=== PATIENT | male | born 1960 | race Caucasian/White ===

== ENCOUNTER 2018-02-14 18:04 | Inpatient (IN) | payer SELFPAY ==
[~2018-02-14] VITALS: Ht 180.3 cm; Wt 103.0 kg
--- NOTE | 2018-02-14 18:20 | NUR ---
PRESENTS TO ER C/O R CHEEK ABSCESS, DIFFICULTY OPENING THE MOUTH. ALREADY SEEN DENTIST AND WAS SENT TO ER. RIGHT CHEEK IS SWOLLEN, RED AND BLACK. WARM TO TOUCH. BREATHING EVEN AND UNLABORED. NO SOB, NAD, VITALS STABLE. SAFETY AND COMFORT MEASURES IN PLACE. AWAITING MD ORDERS.
[2018-02-14 18:59] LABS: BASOPHILS % (AUTO) 0.3 % (0.0-2.0); HEMATOCRIT 45 % (39-51); HEMOGLOBIN 15.3 g/dL (13.5-17.5); LYMPHOCYTES # (AUTO) 2.8 /CMM (0.8-4.8); LYMPHOCYTES % (AUTO) 27.1 % (20.0-44.0); MEAN CORPUSCULAR HEMOGLOBIN 29 PG (26.0-33.0); MEAN CORPUSCULAR HGB CONC 34 g/dl (31.0-36.0); MEAN CORPUSCULAR VOLUME 86 fL (80-96); MONOCYTES # (AUTO) 0.9 /CMM (0.1-1.30); MONOCYTES % (AUTO) 8.9 % (2.0-12.0); NEUTROPHILS # (AUTO) 6.4 /CMM (1.8-8.9); NEUTROPHILS % (AUTO) 61.7 % (43.0-81.0); PLATELET COUNT (AUTO) 329 /CMM (150-450); RDW COEFFICIENT OF VARIATION 13.8 (11.5-15.0); RED BLOOD CELL COUNT(AUTO) 5.28 MIL/uL (4.5-6.0); WHITE BLOOD COUNT (AUTO) 10.3 K/uL (4.3-11.0)
[2018-02-14] MEDS ORDERED: IBUP-1958 PO (18:59)
[2018-02-14] MEDS ORDERED: CEPH500C2 PO (18:59)
[2018-02-14] MEDS ORDERED: CEFTRIAXONE 1GM BAG (ER ONLY) 50 ML IV ONE (19:00)
[2018-02-14] MEDS ORDERED: ONDANSETRON HCL/PF 4 MG/2 ML VIAL IV ONE (19:00)
[2018-02-14] MEDS ORDERED: MORPHINE SULFATE INJ 2 MG/ML DISP.SYRIN IV ONE (19:00)
[2018-02-14] MEDS ORDERED: PIPERACILLIN /TAZOBACTAM 3.375 G in IV D5W 50 ML IV ONE (19:00)
[2018-02-14] MEDS ORDERED: VANCOMYCIN 1 GM in IV D5W 250 ML IV ONE (19:00)
[2018-02-14] MEDS ORDERED: ONDANSETRON HCL/PF 4 MG/2 ML VIAL ONE (19:04)
[2018-02-14] MEDS ORDERED: MORPHINE SULFATE INJ 4 MG/ML DISP.SYRIN ONE (19:04)
--- NOTE | 2018-02-14 19:05 | NUR ---
new iv started on left hand, 20g. blood drawn and sent to lab.
[2018-02-14 19:09] LABS: CALCIUM, SERUM 9.2 mg/dL (8.5-10.1); CREATININE 0.7 mg/dL (0.6-1.3); POTASSIUM 3.7 mmol/L (3.5-5.1)
[2018-02-14 19:13] LABS: INR 1.05 (0.85-1.15)
[2018-02-14 19:15] LABS: BILIRUBIN,DIRECT 0.1 mg/dL (0.0-0.2); BILIRUBIN,TOTAL 0.5 mg/dL (0.2-1.0); TOTAL PROTEIN, SERUM 7.6 g/dL (6.4-8.2)
[2018-02-14] MEDS ORDERED: IV NS 0.9% 250 ML IV ONE (19:18)
[2018-02-14] MEDS ORDERED: IOHEXOL-300 100 ML VIAL IV ONE (19:18)
[2018-02-14] MEDS ORDERED: CT SWABBABLE VALVE TRANS SET 1 EA INFUS.SET MC ONE (19:18)
--- NOTE | 2018-02-14 19:23 | NUR ---
PT BROUGHT TO CT BY RADIOLOGIST
--- NOTE | 2018-02-14 19:24 | NUR ---
REPORT GIVEN TO KATHARINE SHETTY FOR LUCIAN.
--- NOTE | 2018-02-14 19:24 | NUR ---
CALLED RN SUP FOR M/S BED.
--- NOTE | 2018-02-14 19:27 | NUR ---
Hortencia sellers in [facility] - 02/14/18 at 1927 by CONSTANZA CALLED NURSING SUP, REQUESTED MED SURG BED FOR THIS PATIENT.
--- NOTE | 2018-02-14 19:34 | NUR ---
PT RETURNED FROM CT
[2018-02-14] MEDS ORDERED: CEFTRIAXONE 2 G VIAL ONE (19:41)
--- NOTE | 2018-02-14 19:44 | NUR ---
ADMIT TO ROOM 207-1
--- NOTE | 2018-02-14 21:05 | NUR ---
GAVE REPORT TO AVI SHETTY FOR LUCIAN
[2018-02-14 21:28] VITALS: BP 154/82
[2018-02-14] MEDS ORDERED: Z GUARD REMEDY 2 OZ OINT TP PRN (22:00)
[2018-02-14] MEDS ORDERED: MAGNESIUM HYDROXIDE 30 ML UDC PO PRN (22:00)
[2018-02-14] MEDS ORDERED: ACETAMINOPHEN 325 MG TABLET PO PRN (22:00)
[2018-02-14] MEDS ORDERED: ONDANSETRON HCL/PF 4 MG/2 ML VIAL IVP PRN (22:00)
[2018-02-14] MEDS ORDERED: MAG HYDROX/AL HYDROX/SIMETH 30 ML UDC PO PRN (22:00)
[2018-02-14] MEDS ORDERED: IBUPROFEN 800 MG TABLET PO PRN (22:30)
--- NOTE | 2018-02-14 22:46 | NUR ---
MS RN NOTES RECEIVE PT FROM E.R VIA W/C PT ADMIT TO M/S, PT A/O X4, TOLERATING ROOM AIR 98%. NO S/S OF DISTRESS. NO COMPLAIN OF PAIN AT THIS TIME. HEAD TO TOE ASSESSMENT IS DONE SKIN IS INTACT. KEPT CLEAN AND DRY AND COMFOTABLE, RESPIRATIONS EVEN AND UNLABORED. SAFETY MEASURES IN PLACE. WILL CONTINUE TO MONITOR.
[2018-02-14] MEDS: IV NS 0.9% 1,000 ML IV PRN (22:56)
[2018-02-14] MEDS: CEPHALEXIN MONOHYDRATE 500 MG CAPSULE PO SCH (23:19)
[2018-02-15] MEDS ORDERED: NICOTINE PATCH (7MG) 7 MG PATCH.TD24 TD PRN (02:00)
[2018-02-15] MEDS: CEPHALEXIN MONOHYDRATE 500 MG CAPSULE PO SCH (05:27)
[2018-02-15] MEDS: HYDROCODONE/APAP 5/325MG 1 EACH TABLET PO PRN ×3 (05:35→21:56)
[2018-02-15 06:22] LABS: BASOPHILS % (AUTO) 0.4 % (0.0-2.0); EOSINOPHILS % (AUTO) 4.7 % (0.0-6.0); HEMATOCRIT 44 % (39-51); HEMOGLOBIN 14.3 g/dL (13.5-17.5); LYMPHOCYTES # (AUTO) 2.8 /CMM (0.8-4.8); LYMPHOCYTES % (AUTO) 27.7 % (20.0-44.0); MEAN CORPUSCULAR HEMOGLOBIN 29 PG (26.0-33.0); MEAN CORPUSCULAR HGB CONC 32 g/dl (31.0-36.0); MEAN CORPUSCULAR VOLUME 89 fL (80-96); MONOCYTES # (AUTO) 0.8 /CMM (0.1-1.30); MONOCYTES % (AUTO) 8.1 % (2.0-12.0); NEUTROPHILS % (AUTO) 59.1 % (43.0-81.0); PLATELET COUNT (AUTO) 316 /CMM (150-450); RDW COEFFICIENT OF VARIATION 14.8 (11.5-15.0); RED BLOOD CELL COUNT(AUTO) 4.94 MIL/uL (4.5-6.0); WHITE BLOOD COUNT (AUTO) 10.2 K/uL (4.3-11.0)
[2018-02-15 06:43] LABS: CALCIUM, SERUM 8.7 mg/dL (8.5-10.1); CREATININE 0.7 mg/dL (0.6-1.3); MAGNESIUM 1.8 mg/dL (1.8-2.4); PHOSPHORUS 4.3 mg/dL (2.5-4.9); POTASSIUM 4.2 mmol/L (3.5-5.1)
--- NOTE | 2018-02-15 06:43 | NUR ---
MS RN CLOSING NOTES ASLEEP AND EASILY AWAKEN, STABLE, TOLERATING ROOM AIR 99%. NOT IN DISTRESS. RESPIRATION EVEN AND UNLABORED. KEPT CLEAN AND DRY AND COMFORTABLE, ALL NURSING CARE RENDERED. NEEDS ATTENDED AND ANTICIPATED. GOOD SKIN CARE PROVIDED. ON LOW BED AT ALL TIMES TO ENSURE SAFETY. SAFE HAZARD FREE ENVIRONMENT PROVIDED. CALL LIGHT WITHIN EASY TO REACH. WILL ENDORSE NEXT SHIFT CONTINUITY OF CARE.
[2018-02-15 06:51] LABS: THYROID STIMULATING HORMONE 2.763 uIU/mL (0.358-3.74)
--- NOTE | 2018-02-15 07:31 | NUR ---
MS RN OPENING NOTES RECEIVED PATIENT IN STABLE CONDITION. IN NO APPARENT DISTRESS. BEDSIDE RAILS ARE UPX2. BED IS LOCKED AND LOWERED. CALL LIGHT IS WITHIN REACH. IV LINE IS INTACT AND PATENT. WILL CONTINUE TO MONITOR PATIENT.
[2018-02-15 08:00] VITALS: BP 144/86
[2018-02-15] MEDS: PANTOPRAZOLE 40 MG TABLET.DR PO SCH (08:51)
[2018-02-15] MEDS: HYDROCODONE/APAP 10/325MG 1 EA TABLET PO PRN ×3 (08:52→18:56)
[2018-02-15] MEDS: DOCUSATE SODIUM 100 MG CAPSULE PO SCH ×2 (08:54→17:00)
[2018-02-15] MEDS ORDERED: VANCOMYCIN 1 GM in IV NS 0.9% 250 ML IV SCH (11:30)
[2018-02-15] MEDS ORDERED: FEE PK DOSING 1 MIN EA MC ONE (11:45)
[2018-02-15] MEDS ORDERED: PIPERACILLIN /TAZOBACTAM 4.5 G in IV NS 0.9% 50 ML IV SCH (13:00)
[2018-02-15] MEDS: IV NS 0.9% 1,000 ML IV PRN (13:07)
--- NOTE | 2018-02-15 13:10 | NUR ---
CALLED PHARMACY TO PROVIDE ZOSYN ANTIBIOTIC AND VANCOMYCIN. PHARMACY WILL PROVIDE.
[2018-02-15] MEDS: PIPERACILLIN /TAZOBACTAM 3.375 G in IV D5W 50 ML IV SCH ×3 (13:38→23:44)
[2018-02-15] MEDS: VANCOMYCIN 1.25 GM in IV D5W 500 ML IV SCH ×2 (14:24→19:50)
[2018-02-15 16:00] VITALS: BP 156/94
--- NOTE | 2018-02-15 19:20 | NUR ---
MS RN OPENING NOTE Patient was seen sitting up with feet dangling over bedside, AAOx4, breathing comfortably on RA with no SOB, and no signs of acute distress. NS at 75ml/hr is running through the left hand with no signs of leaking or infiltration. Mass/abscess on right cheek is noted; per shift report, there are no orders for wound care; it is currently left open to air. The mass is edematous and red-purple in color with minimal serosanguineous drainage. Bed is low/locked, two side rails up, and call grigsby within reach. is at bedside. Patient has no immediate needs/concerns at this time. Will continue to monitor.
[2018-02-15 19:56] VITALS: BP 164/99
[2018-02-15 20:00] VITALS: BP 164/99
--- NOTE | 2018-02-15 21:56 | NUR ---
MS RN NOTE - [place] Patient requested pain medication for right sided cheek/face pain at 12/09 (patient has mass or possible abscess on right cheek). PO [place] 5/325mg was administered per prn orders. Will continue to monitor.
[2018-02-16] MEDS: HYDROCODONE/APAP 10/325MG 1 EA TABLET PO PRN ×3 (01:55→18:57)
--- NOTE | 2018-02-16 01:55 | NUR ---
MS RN NOTE - [place] Patient reported 8/10 right sided cheek/face pain and requested pain medication. Patient states he's had difficulty sleeping d/t pain. PO [place] 10/325mg was administered per orders for pain relief. Will continue to monitor.
[2018-02-16] MEDS: VANCOMYCIN 1.25 GM in IV D5W 500 ML IV SCH ×3 (03:32→20:36)
--- NOTE | 2018-02-16 06:02 | NUR ---
MS RN NOTE - [place] Patient reported 8-9/10 pain on right side of his face, radiating into his jaw and ear. PO [place] 10/325mg administered per prn orders. Patient advised to only take with very small sip of water given NPO status after midnight. No IV pain medications ordered at this time.
[2018-02-16] MEDS: PIPERACILLIN /TAZOBACTAM 3.375 G in IV D5W 50 ML IV SCH ×3 (06:49→18:00)
[2018-02-16 07:18] LABS: CALCIUM, SERUM 8.9 mg/dL (8.5-10.1); CREATININE 0.7 mg/dL (0.6-1.3); POTASSIUM 4.1 mmol/L (3.5-5.1)
--- NOTE | 2018-02-16 07:44 | NUR ---
MS RN CLOSING NOTE Patient is AAOx4, breathing comfortably on RA with no SOB, and no signs of acute distress. Patient slept intermittently overnight and has remained free of complications. Mass/abscess on right cheek remains red, edematous, painful, and continues to drain serosanguineous fluid. NS at 75ml/hr is running through the left hand. Bed is low/locked, two side rails up, and call grigsby within reach. Patient care endorsed to day shift nurse.
[2018-02-16 07:53] LABS: BASOPHILS % (AUTO) 0.1 % (0.0-2.0); EOSINOPHILS % (AUTO) 5.7 % (0.0-6.0); HEMATOCRIT 41 % (39-51); HEMOGLOBIN 13.6 g/dL (13.5-17.5); LYMPHOCYTES # (AUTO) 2.2 /CMM (0.8-4.8); LYMPHOCYTES % (AUTO) 22.3 % (20.0-44.0); MEAN CORPUSCULAR HEMOGLOBIN 29 PG (26.0-33.0); MEAN CORPUSCULAR HGB CONC 33 g/dl (31.0-36.0); MEAN CORPUSCULAR VOLUME 87 fL (80-96); MONOCYTES # (AUTO) 0.8 /CMM (0.1-1.30); MONOCYTES % (AUTO) 8.7 % (2.0-12.0); NEUTROPHILS # (AUTO) 6.2 /CMM (1.8-8.9); NEUTROPHILS % (AUTO) 63.2 % (43.0-81.0); PLATELET COUNT (AUTO) 262 /CMM (150-450); RDW COEFFICIENT OF VARIATION 13.5 (11.5-15.0); WHITE BLOOD COUNT (AUTO) 9.8 K/uL (4.3-11.0)
[2018-02-16 08:00] VITALS: BP 158/100
[2018-02-16] MEDS: DOCUSATE SODIUM 100 MG CAPSULE PO SCH ×2 (08:33→17:00)
[2018-02-16] MEDS: IBUPROFEN 400 MG TABLET PO PRN ×2 (08:33→18:56)
[2018-02-16] MEDS: PANTOPRAZOLE 40 MG TABLET.DR PO SCH (08:34)
[2018-02-16] MEDS: HYDROCODONE/APAP 5/325MG 1 EACH TABLET PO PRN (12:06)
[2018-02-16 16:00] VITALS: BP 166/90
[2018-02-16] MEDS ORDERED: SUCCINYLCHOLINE CHLORIDE 20 MG/ML VIAL ONE (16:40)
[2018-02-16] MEDS ORDERED: CELLULOSE,OXIDIZED 1 EA PACK MC ONE (17:18)
[2018-02-16] MEDS ORDERED: CELLULOSE,OXIDIZED 1 EACH EACH MC ONE (17:25)
[2018-02-16] MEDS ORDERED: LABETALOL HCL IV 100MG VIAL ONE (17:56)
--- NOTE | 2018-02-16 19:00 | NUR ---
MSRN CLOSING NOTES. PT RETURNED FROM PROCEDURE, ORDERS PLACED, FAMILY CONTACTED, PT VITALS CHARTED. PT WITH 9/10 PAIN, PRN ADMINISTERED. NIGHT NURSE TO ORDER LOZENGES IF NEEDED. PT DRESSING INTACT. ALL DAY NURSE DUTIES ATTENDED TO AND PT IS WITHOUT CONCERN OR COMPLAINT.ENDORSED TO NIGHT NURSE FOR LUCIAN.
[2018-02-16 19:04] VITALS: BP 179/100
--- NOTE | 2018-02-16 19:30 | NUR ---
MS2/RN RECEIVE PATIENT PATIENT IN BED AWAKE, ALERT, ORIENTED, COMFORTABLE, S/P I&D OF THE RIGHT CHEEK ABSCESS, WITH MILD TOLERABLE PAIN AT THIS TIME, DRESSING TO RIGHT CHEEK IS INTACT. WILL MONITOR.
[2018-02-16] MEDS: IV NS 0.9% 1,000 ML IV PRN (19:52)
[2018-02-16 20:45] VITALS: BP 165/89
[2018-02-17] MEDS: PIPERACILLIN /TAZOBACTAM 3.375 G in IV D5W 50 ML IV SCH ×5 (00:04→23:38)
[2018-02-17] MEDS: HYDROCODONE/APAP 10/325MG 1 EA TABLET PO PRN ×3 (02:24→13:53)
[2018-02-17] MEDS: VANCOMYCIN 1.25 GM in IV D5W 500 ML IV SCH ×3 (03:53→19:56)
[2018-02-17] MEDS: IBUPROFEN 400 MG TABLET PO PRN ×3 (06:08→23:35)
--- NOTE | 2018-02-17 07:20 | NUR ---
MS2/RN PATIENT AWAKE, COMFORTABLE, NO DISTRESS NOTED, ALL NEEDS ATTENDED AT THIS TIME. ENDORSED TO NEXT RN FOR CONTINUITY OF CARE.
--- NOTE | 2018-02-17 07:45 | NUR ---
MS RN NOTES PATIENT RECEIVED RESTING INSIDE ROOM. AWAKE, ALERT AND ORIENTED X 4. VERBALLY RESPONSIVE AND RESPONDS TO VERBAL AND TACTILE STIMULI. BREATHING EVEN AND UNLABORED. NO SOB OR ACUTE DISTRESS NOTED. PATIENT CALM AND RELAXED. DENIES ANY PAIN OR DISCOMFORT. IV INTACT AND PATENT. DRESSING IN PLACE ON RIGHT CHEEK, NO ACTIVE BLEEDING NOTED. WILL CONTINUE TO MONITOR. BED LOCKED AND IN LOW POSITION. BILATERAL UPPER SIDE RAILS UP AND LOCKED. CALL LIGHT WITHIN EASY REACH
[2018-02-17 07:56] LABS: BASOPHILS % (AUTO) 0.1 % (0.0-2.0); EOSINOPHILS % (AUTO) 0.3 % (0.0-6.0); HEMATOCRIT 40 % (39-51); HEMOGLOBIN 13.5 g/dL (13.5-17.5); LYMPHOCYTES # (AUTO) 1.3 /CMM (0.8-4.8); LYMPHOCYTES % (AUTO) 13.7 % (20.0-44.0); MEAN CORPUSCULAR HEMOGLOBIN 29 PG (26.0-33.0); MEAN CORPUSCULAR HGB CONC 34 g/dl (31.0-36.0); MEAN CORPUSCULAR VOLUME 87 fL (80-96); MONOCYTES # (AUTO) 0.6 /CMM (0.1-1.30); MONOCYTES % (AUTO) 5.9 % (2.0-12.0); NEUTROPHILS # (AUTO) 7.7 /CMM (1.8-8.9); PLATELET COUNT (AUTO) 282 /CMM (150-450); RDW COEFFICIENT OF VARIATION 13.7 (11.5-15.0); RED BLOOD CELL COUNT(AUTO) 4.63 MIL/uL (4.5-6.0); WHITE BLOOD COUNT (AUTO) 9.6 K/uL (4.3-11.0)
[2018-02-17 08:00] VITALS: BP 169/90
[2018-02-17 08:10] LABS: CALCIUM, SERUM 8.9 mg/dL (8.5-10.1); CREATININE 0.7 mg/dL (0.6-1.3); MAGNESIUM 1.9 mg/dL (1.8-2.4); PHOSPHORUS 3.2 mg/dL (2.5-4.9); POTASSIUM 4.2 mmol/L (3.5-5.1)
[2018-02-17] MEDS: DOCUSATE SODIUM 100 MG CAPSULE PO SCH ×2 (08:54→16:14)
[2018-02-17] MEDS: PANTOPRAZOLE 40 MG TABLET.DR PO SCH (08:54)
[2018-02-17 16:00] VITALS: BP 168/93
--- NOTE | 2018-02-17 19:30 | NUR ---
MS RN NOTES RECEIVED ON BED A/O X4,CONVERSANT.IVF NS AT 75MLHR RATE IN PROGRESS,SITE PATENT ON RFA.NOTED DRESSING ON RIGHT CHEEK SOAKING/ DRIPPING.S/P INCISION AND DRAINAGE RIGHT CHEEK CELLULITIS.PAIN TOLERABLE AT THE MOMENT.CALL LIGHT IN REACH,NEEDS ANTICIPATED.
--- NOTE | 2018-02-17 19:32 | NUR ---
MS RN NOTES PATIENT RECEIVED RESTING INSIDE ROOM. AWAKE, ALERT AND ORIENTED. VERBALLY RESPONSIVE AND RESPONDS TO VERBAL AND TACTILE STIMULI. BREATHING EVEN AND UNLABORED. NO SOB OR ACUTE DISTRESS NOTED. PATIENT CALM AND RELAXED. NO CHANGES IN LOC NOTED. IV INTACT AND PATENT. DRESSING IN PLACE ON RIGHT CHEEK. ENDORSED TO INCOMING SHIFT FOR LUCIAN. BED LOCKED AND IN LOW POSITION. BILATERAL UPPER SIDE RAILS UP AND LOCKED. CALL LIGHT WITHIN EASY REACH
[2018-02-17 20:00] VITALS: BP 163/85
--- NOTE | 2018-02-17 20:00 | NUR ---
MS RN NOTES DUE IV ABX HUNG,INFUSING VIA IV PUMP.
--- NOTE | 2018-02-17 21:30 | NUR ---
MS RN NOTES DRESSING CHANGE DONE ON THE RIGHT CHEEK,PACKING IN PLACE.WILL CONTINUE TO MONITOR.
--- NOTE | 2018-02-17 23:35 | NUR ---
MS RN NOTES PAIN MANAGEMENT C/O RIGHT CHEEK PAIN 6/10 ON PAIN SCALE.MOTRIN 800MG PO GIVEN PER PATIENT REQUEST,INSTEAD OF NORCO 5/325 MG.
[2018-02-18] MEDS: HYDROCODONE/APAP 5/325MG 1 EACH TABLET PO PRN (03:51)
--- NOTE | 2018-02-18 03:51 | NUR ---
MS RN NOTES PAIN MANAGEMENT AWAKE,SITTING ON EDGE OF BED.C/O PAIN VIA RIGHT CHEEK 7/10 N PAIN SCALE.MEDICATED WITH NORCO 5/325MG,1 TAB PO ORDERED.
[2018-02-18] MEDS: VANCOMYCIN 1.25 GM in IV D5W 500 ML IV SCH ×3 (04:04→20:08)
[2018-02-18] MEDS: PIPERACILLIN /TAZOBACTAM 3.375 G in IV D5W 50 ML IV SCH ×4 (06:21→23:51)
[2018-02-18] MEDS: IBUPROFEN 400 MG TABLET PO PRN ×3 (06:28→22:25)
--- NOTE | 2018-02-18 06:28 | NUR ---
MS RN NOTES ON BED,C/O PAIN ON RIGHT CHEEK,MOTRIN 800MG PO GIVEN PER PATIENT REQUEST.IVF INFUSING.DRESSING TO RIGHT CHEEK IN PLACE.IN NO ACUTE DISTRESS.ENDORSED TO [place] SHETTY FOR LUCIAN.
[2018-02-18 07:32] LABS: CALCIUM, SERUM 8.7 mg/dL (8.5-10.1); CREATININE 0.7 mg/dL (0.6-1.3)
--- NOTE | 2018-02-18 07:49 | NUR ---
MS RN NOTES PATIENT RECEIVED RESTING INSIDE ROOM. AWAKE, ALERT AND ORIENTED X 4. VERBALLY RESPONSIVE AND RESPONDS TO VERBAL AND TACTILE STIMULI. BREATHING EVEN AND UNLABORED. NO SOB OR ACUTE DISTRESS. DENIES ANY PAIN OR DISCOMFORT. NO CHANGES IN LOC NOTED. DRESSING IN PLACE ON RIGHT CHEEK. NO ACTIVE BLEEDING AT THIS TIME. WILL CONTINUE TO MONITOR. BED LOCKED AND IN LOW POSITION. BILATERAL UPPER SIDE RAILS UP AND LOCKED. CALL LIGHT WITHIN EASY REACH.
[2018-02-18 08:00] VITALS: BP 147/65
[2018-02-18] MEDS: DOCUSATE SODIUM 100 MG CAPSULE PO SCH ×2 (08:26→17:47)
[2018-02-18] MEDS: PANTOPRAZOLE 40 MG TABLET.DR PO SCH (08:26)
[2018-02-18] MEDS: IV NS 0.9% 1,000 ML IV PRN (12:52)
[2018-02-18] MEDS: HYDROCODONE/APAP 10/325MG 1 EA TABLET PO PRN ×2 (14:18→18:52)
[2018-02-18 16:00] VITALS: BP 167/86
--- NOTE | 2018-02-18 19:00 | NUR ---
MS RN OPENING NOTES RECEIVED PATIENT IN STABLE CONDITION. IN NO APPARENT DISTRESS. BEDSIDE RAILS ARE UPX2. BED IS LOCKED AND LOWERED. CALL LIGHT IS WITHIN REACH. WILL CONTINUE TO MONITOR PATIENT.
--- NOTE | 2018-02-18 19:25 | NUR ---
MS RN NOTES PATIENT RESTING INSIDE ROOM. AWAKE, ALERT AND ORIENTED. VERBALLY RESPONSIVE AND RESPONDS TO VERBAL AND TACTILE STIMULI. BREATHING EVEN AND UNLABORED. NO SOB OR ACUTE DISTRESS NOTED. NO CHANGES IN LOC NOTED. IV INTACT AND PATENT. DRESSING INTACT ON RIGHT CHEEK. ENDORSED TO INCOMING SHIFT FOR LUCIAN. BED LOCKED AND IN LOW POSITION. BILATERAL UPPER SIDE RAILS UP AND LOCKED. CALL LIGHT WITHIN EASY REACH
[2018-02-18 20:00] VITALS: BP 149/71
[2018-02-19] MEDS: VANCOMYCIN 1.25 GM in IV D5W 500 ML IV SCH ×2 (03:00→13:15)
[2018-02-19] MEDS: HYDROCODONE/APAP 10/325MG 1 EA TABLET PO PRN ×2 (03:01→10:22)
[2018-02-19] MEDS ORDERED: IBUPROFEN 400 MG TABLET ONE (04:37)
[2018-02-19] MEDS: IBUPROFEN 400 MG TABLET PO PRN ×3 (05:03→19:43)
[2018-02-19] MEDS: PIPERACILLIN /TAZOBACTAM 3.375 G in IV D5W 50 ML IV SCH ×4 (05:03→23:16)
--- NOTE | 2018-02-19 06:00 | NUR ---
MS RN CLOSING NOTES ASLEEP AND EASILY AWAKEN, TOLERATING ROOM AIR 100%, STABLE AND NOT IN DISTRESS. RESPIRATION EVEN AND UNLABORED. NO COMPLAIN OF PAIN AT THIS TIME 0-10 KEPT CLEAN AND DRY AND COMFORTABLE, ALL NURSING CARE RENDERED. NEEDS ATTENDED AND ANTICIPATED. GOOD SKIN CARE PROVIDED. ON LOW BED AT ALL TIMES TO ENSURE SAFETY. SAFE HAZARD FREE ENVIRONMENT PROVIDED. CALL LIGHT WITHIN EASY TO REACH. WILL ENDORSE NEXT SHIFT CONTINUITY OF CARE
--- NOTE | 2018-02-19 07:13 | NUR ---
MS RN OPENING NOTES RECEIVED PATIENT ASLEEP IN BED, EASILY AROUSABLE. HOB ELEVATED. ON ROOM AIR, BREATHING EVEN AND UNLABORED. NO SOB OR ACUTE DISTRESS NOTED. IV ACCESS ON RFA INTACT AND PATENT, IVF OF NS @ 75ML/HR INFUSING, NO S/S OF INFILTRATION NOTED. DRESSING IN PLACE ON RIGHT CHEEK, NO ACTIVE BLEEDING NOTED. SAFETY MEASURES IN PLACE. BED LOCKED AND IN LOW POSITION WITH BILATERAL UPPER SIDE RAILS UP X2. CALL LIGHT WITHIN EASY REACH. WILL CONTINUE TO MONITOR PT ACCORDINGLY.
[2018-02-19 07:39] LABS: CREATININE 0.8 mg/dL (0.6-1.3)
[2018-02-19] MEDS: PANTOPRAZOLE 40 MG TABLET.DR PO SCH (07:47)
[2018-02-19 08:00] VITALS: BP 154/83
[2018-02-19] MEDS: METFORMIN 500 MG TABLET PO SCH ×2 (08:39→16:54)
[2018-02-19] MEDS: DOCUSATE SODIUM 100 MG CAPSULE PO SCH ×2 (08:44→16:55)
--- NOTE | 2018-02-19 10:23 | NUR ---
RN NOTES PAIN MANAGEMENT PATIENT C/O PAIN ON HIS RIGHT CHEEK WITH 8/10 PAIN SCALE. PRN NORCO 10/325MG 1 TAB PO GIVEN ORDERED. WILL CONTINUE TO MONITOR..
[2018-02-19] MEDS: HYDROCODONE/APAP 5/325MG 1 EACH TABLET PO PRN ×3 (14:47→23:33)
--- NOTE | 2018-02-19 14:52 | NUR ---
RN NOTES PAIN MANAGEMENT PATIENT C/O PAIN ON HIS RIGHT CHEEK WITH 5/10 PAIN SCALE. PRN NORCO 5/325MG 1 TAB PO GIVEN ORDERED. WILL CONTINUE TO MONITOR..
[2018-02-19 16:00] VITALS: BP 166/91
[2018-02-19] MEDS: IV NS 0.9% 1,000 ML IV PRN (16:51)
--- NOTE | 2018-02-19 18:50 | NUR ---
RN NOTES PAIN MANAGEMENT PATIENT C/O PAIN ON HIS RIGHT CHEEK WITH 6/10 PAIN SCALE. PRN NORCO 5/325MG 1 TAB PO GIVEN 1847. WILL CONTINUE TO MONITOR..
--- NOTE | 2018-02-19 18:51 | NUR ---
MS RN CLOSING NOTES PATIENT AWAKE AND RESTING IN BED AT THIS TIME. HOB ELEVATED. A.O X4, SAME ABLE TO MAKE NEEDS KNOWN. PT AMBULATORY AND COOPERATIVE WITH CARE. DRESSING ON RIGHT CHEEK IN PLACE WITH MINIMAL AMOUNT OF DRAINAGE NOTED. DRESSING CHANGED X2 DURING SHIFT. ON ROOM AIR, BREATHING EVEN AND UNLABORED. NO SOB OR ACUTE DISTRESS NOTED. IV ACCESS ON RFA INTACT AND PATENT, IVF OF NS @ 75ML/HR INFUSING WELL, NO S/S OF INFILTRATION NOTED. ALL NEEDS AND CARE ATTENDED WELL. ALL SAFETY MEASURES KEPT IN PLACE. BED LOCKED AND IN LOW POSITION WITH BILATERAL UPPER SIDE RAILS UP X2. CALL LIGHT WITHIN EASY REACH. WILL ENDORSE TO HIMS MANAGER NURSE FOR LUCIAN.
--- NOTE | 2018-02-19 19:30 | NUR ---
RN NOTES RECEIVED PT. AWAKE ON BED, A/OX4, DRESSING ON HIS FACE DRY AND INTACT, IV FLUID NS @ 75ML/HR, CALL LIGHT WITHIN REACH, BED IN LOCKED POSITION, SIDERAILSUPX2, CONTINUE TO MONITOR
--- NOTE | 2018-02-19 19:51 | NUR ---
RN NOTES COMPLAINED OF FACE PAIN AND ASKED FOR MOTRIN- MOTRIN 800MG PO GIVEN ORDERED, V/S STABLE
[2018-02-19 20:00] VITALS: BP 152/88
[2018-02-19] MEDS ORDERED: VANCOMYCIN 1 GM in IV D5W 250 ML IV SCH (20:00)
--- NOTE | 2018-02-19 23:38 | NUR ---
RN NOTES COMPLAINED OF RIGHT FACE PAIN- NOROC 5/325 MG PO GIVEN ORDERED, V/S STABLE
[2018-02-20] MEDS: IBUPROFEN 400 MG TABLET PO PRN ×2 (01:39→14:12)
--- NOTE | 2018-02-20 01:47 | NUR ---
RN NOES PT. ASKED FOR MOTRIN -MOTRIN 800MG PO GIVEN ORDERED
[2018-02-20] MEDS: IV NS 0.9% 1,000 ML IV PRN (04:07)
[2018-02-20] MEDS: HYDROCODONE/APAP 10/325MG 1 EA TABLET PO PRN ×2 (04:45→10:13)
--- NOTE | 2018-02-20 04:48 | NUR ---
RN NOTES COMPLAINED OF RIGHT FACE PAIN- NORCO 10/325 MG PO GIVEN ORDERED, V/ S STABLE
[2018-02-20] MEDS: PIPERACILLIN /TAZOBACTAM 3.375 G in IV D5W 50 ML IV SCH ×3 (05:40→17:07)
--- NOTE | 2018-02-20 06:34 | NUR ---
RN NOTES SLEEPING BUT AROUSABLE, IV FLUID RUNNING IV LINE PATENT NO REDNESS OR SWOLLEN, MORNING CARE RENDERED, SIDERAILSUPX2, PT. NEEDS ATTENDED
--- NOTE | 2018-02-20 07:10 | NUR ---
MS RN OPENING NOTES PATIENT RECEIVED AWAKE IN BED IN NO ACUTE SIGNS OF DISTRESS. HOB ELEVATED. A/O X4. ABLE TO MAKE NEEDS AND CONCERNS KNOWN, NO C/O PAIN OR DISCOMFORTS AT THIS TIME. DRESSING IN PLACE ON RIGHT CHEEK, NO ACTIVE BLEEDING NOTED. ON ROOM AIR, BREATHING EVEN AND UNLABORED. IV ACCESS ON RFA INTACT AND PATENT, IVF OF NS @ 75ML/HR INFUSING WELL, NO S/S OF INFILTRATION NOTED. SAFETY MEASURES IN PLACE. BED LOCKED AND IN LOW POSITION WITH BILATERAL UPPER SIDE RAILS UP. CALL LIGHT WITHIN EASY REACH. WILL CONTINUE TO MONITOR PT.
[2018-02-20 07:17] LABS: CALCIUM, SERUM 8.4 mg/dL (8.5-10.1); CREATININE 0.7 mg/dL (0.6-1.3); POTASSIUM 3.7 mmol/L (3.5-5.1)
[2018-02-20 08:00] VITALS: BP 164/87
[2018-02-20] MEDS: PANTOPRAZOLE 40 MG TABLET.DR PO SCH ×2 (08:18→09:05)
[2018-02-20] MEDS: DOCUSATE SODIUM 100 MG CAPSULE PO SCH ×2 (09:00→17:00)
[2018-02-20] MEDS: METFORMIN 500 MG TABLET PO SCH ×2 (09:05→17:06)
--- NOTE | 2018-02-20 14:15 | NUR ---
RN NOTES PAIN MANAGEMENT PATIENT'S RIGHT CHEEK REMAINS SWOLLEN WITH REDNESS AROUND WOUND. WOUND TREATMENT DONE ORDERED. PATIENT C/O ACHING AND THROBBING PAIN ON HIS RIGHT CHEEK WITH PAIN SCALE OF 6/10. PRN MOTRIN 800MG PO GIVEN AT 1412. WILL CONTINUE TO MONITOR.
[2018-02-20 16:00] VITALS: BP 165/74
[2018-02-20] MEDS: HYDROCODONE/APAP 5/325MG 1 EACH TABLET PO PRN (17:06)
--- NOTE | 2018-02-20 17:14 | NUR ---
RN NOTES PAIN MANAGEMENT PATIENT C/O ACHING AND THROBBING PAIN ON HIS RIGHT CHEEK WITH PAIN SCALE OF 5/10. PRN NORCO 5/325MG PO GIVEN AT 1706. WILL CONTINUE TO MONITOR
--- NOTE | 2018-02-20 18:57 | NUR ---
RN DISCHARGED NOTES PATIENT DISCHARGED HOME IN STABLE CONDITION. A/O X4. ABLE TO MAKE NEEDS KNOWN. ALL DUE MEDS GIVEN ORDERED. PT'S SHOWED AND THOUGHT HOW TO DO WOUND CARE TREATMENT ON PT'S RIGHT CHEEK WOUND AND ABLE TO UNDERSTAND AND DEMONSTRATE HOW TO DO IT. PHOTO OF WOUND TAKEN AND FILED ON CHART. V/S TAKEN AND RECORDED. BELONGINGS CHECKED, COUNTED AND SIGNED FORM. PRESCRIPTION HANDED TO PT. HEALTH TEACHINGS GIVEN TO PT AND AND BOTH VERBALIZED UNDERSTANDING. SMOKING CESSATION EDUCATION GIVEN TO PT. PT LEFT UNIT AMBULATORY AT 1855 ACCOMPANIED BY . MD AND NURSE WATER TREATMENT PLANT SUPERVISOR AWARE OF DISCHARGE.
== END 2018-02-20 18:55 | disposition home or self-care (01) | DRG 982 ==
LOC: ER 18:09 → MEDSG2 19:49
PROVIDERS: ADMIT Registered Nurse; ATTEND Registered Nurse
PROC: 0KD Muscles, Extraction (ICD-10-PCS; principal; 2018-02-18)
DX: C76.0 Malignant neoplasm of head, face and neck (principal); L03.211 Cellulitis of face; L02.01 Cutaneous abscess of face; K02.9 Dental caries, unspecified; L73.9 Follicular disorder, unspecified; E66.9 Obesity, unspecified; Z68.32 Body mass index [BMI] 32.0-32.9, adult; Z72.0 Tobacco use; E11.9 Type 2 diabetes mellitus without complications
CPT/HCPCS: 36415; 70491-TC; 80048-TC; 80061-TC; 80076-TC; 80202-TC; 80305; 83540-TC; 83605-TC; 83735-TC; 84100-TC; 84443-TC; 85025-TC; 85730-TC; 87040-TC; 87070-TC; 87075-TC; 87081-TC; 87186-TC; 87806; 88305-TC; 92611-TC; A4216; A4606; A6253; A6402; A6403; A6407; J0330; J0696; J2270; J2405; J2543; J3370; J3490; J7030; J7050; J7060; Q9967; Z7610

== ENCOUNTER 2019-03-18 00:13 | Inpatient (IN) | payer MEDICAID, OTHER ==
[~2019-03-18] VITALS: Ht 180.3 cm; Wt 69.4 kg
[~2019-03-18 00:13] MED LIST: IBUP-1958 PO
--- NOTE | 2019-03-18 00:15 | NUR ---
PT BIB EMS C/O L ABD G-TUBE DISLOGEMENT X20 MIN GLAZIER STAINED GLASS. PT NONVERBAL. FAMILY AND CAREGIVER AT BEDSIDE TO PROVIDE HISTORY. NAD NOTED. RESP EVEN AND UNLABORED. VSS. PT ON MONITOR IN BED 1. WILL CONTINUE TO MONITOR.
--- NOTE | 2019-03-18 00:59 | NUR ---
BLOOD DRAWN FROM PICC LINE AND GIVEN TO PHLEB
[2019-03-18] MEDS ORDERED: IV NS 0.9% 500 ML BAG IV ONE (01:00)
[2019-03-18 01:14] LABS: CALCIUM, SERUM 11.1 mg/dL (8.5-10.1); CREATININE 0.6 mg/dL (0.6-1.3); POTASSIUM 4.3 mmol/L (3.5-5.1)
[2019-03-18] MEDS ORDERED: SENN-168 GT (01:14)
[2019-03-18] MEDS ORDERED: GABA100C GT (01:14)
[2019-03-18] MEDS ORDERED: ATEN25TA GT (01:14)
[2019-03-18] MEDS ORDERED: POLY119P2 GT (01:14)
[2019-03-18] MEDS ORDERED: MORP30TA GT (01:14)
[2019-03-18] MEDS ORDERED: MORP30CA16 GT (01:14)
[2019-03-18 01:19] LABS: ALBUMIN 1.9 g/dL (3.4-5.0); BILIRUBIN,DIRECT 0.1 mg/dL (0.0-0.2); BILIRUBIN,TOTAL 0.1 mg/dL (0.2-1.0); TOTAL PROTEIN, SERUM 6.9 g/dL (6.4-8.2)
[2019-03-18 01:25] LABS: BASOPHILS # (AUTO) 0.1 /CMM (0.0-0.2); BASOPHILS % (AUTO) 0.3 % (0.0-2.0); EOSINOPHILS % (AUTO) 0.2 % (0.0-6.0); HEMATOCRIT 27 % (39-51); HEMOGLOBIN 8.8 g/dL (13.5-17.5); LYMPHOCYTES # (AUTO) 0.8 /CMM (0.8-4.8); LYMPHOCYTES % (AUTO) 3.9 % (20.0-44.0); MEAN CORPUSCULAR HGB CONC 33 g/dl (31.0-36.0); MEAN CORPUSCULAR VOLUME 87 fL (80-96); MONOCYTES # (AUTO) 1.2 /CMM (0.1-1.30); NEUTROPHILS # (AUTO) 17.9 /CMM (1.8-8.9); NEUTROPHILS % (AUTO) 89.6 % (43.0-81.0); PLATELET COUNT (AUTO) 340 /CMM (150-450); WHITE BLOOD COUNT (AUTO) 19.9 K/uL (4.3-11.0)
--- NOTE | 2019-03-18 01:41 | NUR ---
M/S ROOM 109
--- NOTE | 2019-03-18 01:48 | NUR ---
REPORT GIVEN TO DIOGENES AMARO FOR LUCIAN
[2019-03-18] MEDS ORDERED: MAG HYDROX/AL HYDROX/SIMETH 30 ML UDC PO PRN (02:00)
[2019-03-18] MEDS ORDERED: ACETAMINOPHEN 325 MG TABLET PO PRN (02:00)
[2019-03-18] MEDS ORDERED: ZOLPIDEM TARTRATE 5 MG TABLET PO PRN (02:00)
[2019-03-18] MEDS ORDERED: IV NS 0.9% 1,000 ML IV PRN (02:00)
[2019-03-18] MEDS ORDERED: HYDROCODONE/APAP 5/325MG 1 EACH TABLET PO PRN (02:00)
[2019-03-18] MEDS ORDERED: ONDANSETRON HCL/PF 4 MG/2 ML VIAL IVP PRN (02:00)
[2019-03-18] MEDS ORDERED: Z GUARD REMEDY 2 OZ OINT TP PRN (02:00)
[2019-03-18] MEDS ORDERED: DEXTROSE 50%-WATER 50 ML DISP.SYRIN IV PRN (02:00)
--- NOTE | 2019-03-18 03:30 | NUR ---
MS RN NOTE PATIENT RECEIVED FROM ER IN [facility] WITH FAMILY. PATIENT HAS MUCH DIFFICULTY SPEAKING DUE TO CANCER ON FACE ND NECK. PATIENT C/O OF PAIN IN HEAD AND NECK 03/11. PATIENT DENIES SOB/ CHEST PAIN. COPIOUS AMOUNTS OF ORAL SECRETIONS NOTED PATIENT ABLE TO COUGH AND CLEAR WELL. BODY CHECK DONE, WOUNDS NOTED ON SACRUM AND OLD GTUBE SITE. PATIENT AND FAMILY ORIENTED TO UNIT. CALL LIGHT INSTRUCTIONS GIVEN PATIENT VERBALIZES UNDERSTANDING. VI PICC PATENT AND INTACT. ABLE TO ASPIRATE BLOOD. SAFETY PRECAUTIONS IN PLACE, RN WILL CONTINUE TO MONITOR.
--- NOTE | 2019-03-18 03:39 | NUR ---
MS RN NOTE PATIENT FAMILY REQUEST THAT ALL DOCTOR VISITS BE DONE WITH OVER THE PHONE WELL IF NOT PHYSICALLY PRESENT. [phone]
[2019-03-18 04:00] VITALS: BP 153/79
[2019-03-18] MEDS ORDERED: VANCOMYCIN 1 GM in IV D5W 250ml IV SCH (04:00)
--- NOTE | 2019-03-18 04:00 | NUR ---
MS RN NOTE PATIENT HAS VASCULAR CANCEROUS WOUND ON ON NECK FAMILY REFUSES TO HAVE CURRENT DRESSINGS REMOVED FOR PATIENT SAFETY. NO PICTURE ABLE TO BE TAKEN HIDE AND SKIN PROCESSING WORKER AWARE.
[2019-03-18] MEDS ORDERED: VANCOMYCIN 1 GM VIAL ONE (04:32)
[2019-03-18] MEDS ORDERED: PIPERACILLIN /TAZOBACTAM 3.375 G VIAL IV ONE (04:33)
[2019-03-18] MEDS: BLOOD SUGAR DIAGNOSTIC 1 EACH STRIP IN SCH ×3 (06:15→17:26)
--- NOTE | 2019-03-18 06:15 | NUR ---
MS RN NOTE PATIENT REFUSES INSULIN AFTER 0600 BS CHECK WAS 177, PATIENT CURRENTLY NPO WITH NS MAINTENANCE FLUIDS. MD AND ELECTRICAL ASSEMBLY TECHNICIANDIOGENES BARCLAY
[2019-03-18] MEDS: MORPHINE SULFATE INJ 2 MG/ML DISP.SYRIN IM PRN ×2 (06:18→17:51)
[2019-03-18] MEDS: PIPERACILLIN /TAZOBACTAM 3.375 G in IV D5W 50 ML IV SCH ×3 (06:24→17:18)
[2019-03-18 06:52] LABS: BASOPHILS # (AUTO) 0.1 /CMM (0.0-0.2); BASOPHILS % (AUTO) 0.3 % (0.0-2.0); EOSINOPHILS % (AUTO) 0.4 % (0.0-6.0); HEMATOCRIT 27 % (39-51); HEMOGLOBIN 8.7 g/dL (13.5-17.5); LYMPHOCYTES # (AUTO) 0.8 /CMM (0.8-4.8); LYMPHOCYTES % (AUTO) 4.3 % (20.0-44.0); MEAN CORPUSCULAR HGB CONC 32 g/dl (31.0-36.0); MEAN CORPUSCULAR VOLUME 86 fL (80-96); MONOCYTES # (AUTO) 1.1 /CMM (0.1-1.30); MONOCYTES % (AUTO) 6.1 % (2.0-12.0); NEUTROPHILS # (AUTO) 16.3 /CMM (1.8-8.9); NEUTROPHILS % (AUTO) 88.9 % (43.0-81.0); PLATELET COUNT (AUTO) 335 /CMM (150-450); RED BLOOD CELL COUNT(AUTO) 3.14 MIL/uL (4.5-6.0); WHITE BLOOD COUNT (AUTO) 18.3 K/uL (4.3-11.0)
[2019-03-18 07:07] LABS: CALCIUM, SERUM 11.3 mg/dL (8.5-10.1); CREATININE 0.5 mg/dL (0.6-1.3); PHOSPHORUS 2.5 mg/dL (2.5-4.9); POTASSIUM 4.2 mmol/L (3.5-5.1)
--- NOTE | 2019-03-18 07:18 | NUR ---
MS RN OPENING NOTE RECEIVED REPORT FROM [facility] SHIFT NURSE. PT AWAKE IN BED, AWAKE, ALERT AND ORIENTED X 1, ON ROOM AIR, SATURATING WELL, NO SIGNS OF RESPIRATORY DISTRESS NOTED. INTRODUCED SELF TO PT AND DISCUSSED PLAN OF CARE. TRACH DRESSING INTACT. DRESSING ON LEFT CAROTID SITE IS NOT INTACT, PER [facility] SHIFT NURSE PT'S DOES NOT WANT STAFF TO TOUCH THE DRESSING AT ALL. LEFT UPPER ARM PICC INFUSING NS AT 75ML/HR. BED IN LOW POSITION, LOCKED, CALL LIGHT WITHIN REACH.
[2019-03-18] MEDS ORDERED: FEE PK DOSING 1 MIN EA MC ONE (07:21)
--- NOTE | 2019-03-18 07:45 | NUR ---
CHITO WOUND CARE NURSE BY PT'S BEDSIDE. ASSESSED SACRAL WOUND, PLACED WOUND CARE ORDERS.
[2019-03-18 08:00] VITALS: BP 161/95
--- NOTE | 2019-03-18 08:17 | NUR ---
WOUND CARE CONSULT: PT PRESENTS WITH LARGE DRESSING TO RT SIDE OF FACE AND NECK WITH CLAIRE/PINK DRAINAGE AND SOME ODOR NOTED, PRESENT ON ADMISSION. PT AND REFUSED TO HAVE DRESSING REMOVED DUE TO RISK OF BLEEDING PER NURSING STAFF. ABD PAD APPLIED FOR REINFORCEMENT OF DRESSING. DEFER TO MD FOR POSSIBLE SURGICAL CONSULT. PT ALSO NOTED TO HAVE RASH TO PERINEUM AND BUTTOCKS AND STAGE 2 ULCER TO SACRUM, PRESENT ON ADMISSION. RECOMMENDATIONS MADE FOR SKIN PROTECTION AND SACRAL WOUND CARE. DISCUSSED WITH NURSING STAFF. PT ON ARLEY ISOFLEX LOW AIRLOSS BED. WILL SEE PRN. IN AGREEMENT WITH PLAN OF CARE. Addendum: 03/18/19 at 0838 by CHITO BARDALES WNDNU ADDITIONAL: G TUBE IS OUT, PRESENT ON ADMISSION. DEFER TO MD.
--- NOTE | 2019-03-18 08:46 | NUR ---
SPOKE WITH PT'S TO UPDATE HER ON PATIENT'S CONDITION. PER - PT IS BEING SEEN BY [facility] FOR HIS WOUND ON RIGHT SIDE OF NECK. GAVE PERMISSION TO CHANGE DRESSING ON THE NECK AND SECURE IT
--- NOTE | 2019-03-18 08:52 | NUR ---
PT BY BEDSIDE
--- NOTE | 2019-03-18 09:02 | NUR ---
PHOTOS TAKEN OF NECK RIGHT SIDE- PLACED INTO CHART. MEASUREMENTS 7 X 10 CM. PER WOUND CARE NURSE ORDERS APPLIED XEROFOAM, COVERED WITH ABDOMINAL PAD, SECURED WITH KERLIX.
--- NOTE | 2019-03-18 09:56 | NUR ---
WOUND CARE: SPOKE WITH PATIENT'S VIKSA AND SHE REQUESTED WOUND DRESSING CHANGE FOR FACIAL WOUND. WOUND ASSESSED, PHOTOGRAPHED AND WOUND CARE RECOMMENDATIONS MADE. DISCUSSED WITH NURSING STAFF AND DR US. SURGICAL CONSULT REQUESTED AND DR LATIA MARIEE NOTIFIED. WILL SEE PRN. Carolina Gant IN AGREEMENT WITH PLAN OF CARE. Addendum: 03/18/19 at 1001 by CHITO BARDALES WNDNU Amended: Links added.
--- NOTE | 2019-03-18 11:56 | NUR ---
PT'S IS AT BEDSIDE REQUESTING TO SPEAK WITH DR. US. CALLED [facility]- SPOKE WITH LIZ TO GIVE A MESSAGE TO DR. US THAT PT'S FAMILY WOULD LIKE TO SPEAK WITH HIM.
--- NOTE | 2019-03-18 12:07 | NUR ---
DR. US BY BEDSIDE, SPEAKING WITH PT'S
[2019-03-18] MEDS: INSULIN REGULAR, HUMAN 100 UNIT/ML 3 ML VIAL SQ PRN ×3 (12:53→17:33)
--- NOTE | 2019-03-18 12:53 | NUR ---
HELD 2 UNITS OF INSULIN DUE TO PT NPO STATUS
[2019-03-18] MEDS ORDERED: ALBU2.5V13 IH (12:56)
[2019-03-18] MEDS ORDERED: ACET100V4 MC (12:56)
[2019-03-18] MEDS ORDERED: ALBUTEROL FS 2.5 MG/0.5 ML VIAL.NEB IH PRN (13:30)
[2019-03-18] MEDS ORDERED: POLYETHYLENE GLYCOL 3350 17 GM POWD.PACK GT PRN (13:30)
[2019-03-18] MEDS ORDERED: SENNOSIDES 8.6 MG TABLET GT PRN (13:30)
[2019-03-18] MEDS: VANCOMYCIN 1 GM in IV D5W 250 ML IV SCH ×2 (13:36→21:30)
--- NOTE | 2019-03-18 13:50 | NUR ---
RECEIVED CALL FROM JERRY HOFFMAN WITH ORDERS TO INSERT NORWOOD INTO GTUBE SITE TO PREVENT IT FROM CLOSING FURTHER UNTIL SHE IS ABLE TO COME.
--- NOTE | 2019-03-18 14:18 | NUR ---
CALLED [facility]- SPOKE WITH KINGA- RELAYING MESSAGE THAT PT'S WOULD LIKE TO SPEAK WITH JACKSON HOFFMAN SOON POSSIBLE.
[2019-03-18] MEDS ORDERED: HYDROGEL DRESSING 90 GM TUBE TP PRN (15:00)
[2019-03-18] MEDS ORDERED: MORPHINE SULFATE IR 15 MG TABLET GT PRN (15:00)
[2019-03-18] MEDS ORDERED: DIATR MEGLU/DIATRIZOATE SODIUM 30 ML BOTTLE (GASTROGRAPHIN) ONE (15:26)
[2019-03-18 16:00] VITALS: BP 152/86
[2019-03-18] MEDS: GABAPENTIN 300 MG CAPSULE GT SCH (16:56)
[2019-03-18] MEDS ORDERED: JEVITY 1.2 CAL 1,000 ML BOTTLE GT SCH (17:00)
[2019-03-18] MEDS ORDERED: ACETYLCYSTEINE 10% 3,000 MG/30 ML VIAL MC SCH (18:00)
--- NOTE | 2019-03-18 18:20 | NUR ---
MS RN CLOSING NOTE PT AWAKE IN BED, ALERT AND ORIENTED X 2, (DOES NOT KNOW THE TIME/DATE). PT IS ON ROOM AIR, SATURATING WELL, NO SIGNS OF RESPIRATORY DISTRESS NOTED, RESPIRATIONS EASY AND UNLABORED. BILATERAL EDEMA ON LEGS, ENCOURAGED PT TO ELEVATE FEET ON PILLOWS WHEN LAYING DOWN THROUGHOUT SHIFT. LEFT UPPER ARM PICC INTACT, PATENT, INFUSING NS AT 75ML/HR. PT REFUSED INSULIN COVERAGE AT 18:00. GTUBE PLACEMENT CONFIRMED WITH X RAY. PER FAMILY'S REQUEST- PT WILL GET JEVITY 1.2 945ML BOLUS BID. BED IN LOW POSITION, LOCKED, CALL LIGHT WITHIN REACH. PROVIDED SAFETY AND COMFORT TO PT THROUGHOUT SHIFT, ALL DUE MEDS GIVEN. WILL ENDORSE TO NOC SHIFT NURSE.
[2019-03-18] MEDS: ALBUTEROL FS 2.5 MG/0.5 ML VIAL.NEB IH SCH (20:28)
[2019-03-18] MEDS ORDERED: MORPHINE SULFATE SR 30 MG TABLET.SA PO SCH (21:00)
[2019-03-18] MEDS: JEVITY 1.2 CAL 1,000 ML BOTTLE GT SCH (21:56)
[2019-03-19] VITALS: BP 139/81
[2019-03-19] MEDS: PIPERACILLIN /TAZOBACTAM 3.375 G in IV D5W 50 ML IV SCH ×3 (00:04→13:17)
[2019-03-19] MEDS: BLOOD SUGAR DIAGNOSTIC 1 EACH STRIP IN SCH ×3 (00:04→12:00)
[2019-03-19] MEDS: ALBUTEROL FS 2.5 MG/0.5 ML VIAL.NEB IH SCH ×3 (02:09→15:21)
[2019-03-19] MEDS: VANCOMYCIN 1 GM in IV D5W 250 ML IV SCH ×2 (04:08→14:53)
[2019-03-19] MEDS: INSULIN REGULAR, HUMAN 100 UNIT/ML 3 ML VIAL SQ PRN ×2 (05:27→12:11)
[2019-03-19 05:32] LABS: CALCIUM, SERUM 11.3 mg/dL (8.5-10.1); CREATININE 0.6 mg/dL (0.6-1.3); POTASSIUM 4.1 mmol/L (3.5-5.1)
[2019-03-19] MEDS: MORPHINE SULFATE INJ 2 MG/ML DISP.SYRIN IM PRN (07:17)
--- NOTE | 2019-03-19 07:20 | NUR ---
MS RN OPENING NOTE RECEIVED REPORT FROM [facility] SHIFT NURSE. PT AWAKE IN BED, AWAKE, ALERT AND ORIENTED X 2, ON ROOM AIR, SATURATING WELL, NO SIGNS OF RESPIRATORY DISTRESS NOTED. TRACH DRESSING INTACT. DRESSING ON RIGHT NECK CHANGED AND SECURED. PT REPORTS PAIN RATED A 8/10 ON THE RIGHT SIDE OF HIS FACE/NECK, ADMINISTERED MORPHINE 2MG IV PRN FOR PAIN. LEFT UPPER ARM PICC INFUSING NS AT 75ML/HR. BED IN LOW POSITION, LOCKED, CALL LIGHT WITHIN REACH. INTRODUCED SELF TO PT AND DISCUSSED PLAN OF CARE.
[2019-03-19 08:00] VITALS: BP 155/88
[2019-03-19] MEDS: GABAPENTIN 300 MG CAPSULE GT SCH ×2 (08:02→13:17)
[2019-03-19] MEDS ORDERED: ATENOLOL 25 MG TABLET GT SCH (09:00)
[2019-03-19] MEDS ORDERED: HYDROGEL DRESSING 90 GM TUBE TP SCH (09:00)
[2019-03-19] MEDS: JEVITY 1.2 CAL 1,000 ML BOTTLE GT SCH (09:40)
[2019-03-19 16:00] VITALS: BP_SYST 151; BP_SYST 161; BP_DIAS 80; BP_DIAS 82
--- NOTE | 2019-03-19 16:13 | NUR ---
DISCHARGE PHOTOS TAKEN, PLACED IN CHART. ALL DISCHARGE PAPERS SIGNED AND EXPLAINED TO PT AND FAMILY. ALL BELONGINGS ACCOUNTED FOR.
--- NOTE | 2019-03-19 16:33 | NUR ---
LEFT UNIT IN STABLE CONDITION VIA WHEELCHAIR
== END 2019-03-19 16:31 | disposition home or self-care (01) | DRG 252 ==
LOC: ER 00:15 → MEDSG1 03:12
PROVIDERS: ADMIT Internal Medicine; ATTEND Internal Medicine
PROC: 0D20XUZ Change Feeding Device in Upper Intestinal Tract, External Approach (ICD-10-PCS; principal; 2019-03-18)
PROC: B548ZZA Ultrasonography of Superior Vena Cava, Guidance (ICD-10-PCS; principal; 2019-03-18)
PROC: 02HV33Z Insertion of Infusion Device into Superior Vena Cava, Percutaneous Approach (ICD-10-PCS; principal; 2019-03-18)
DX: K94.22 Gastrostomy infection (principal); E11.69 Type 2 diabetes mellitus with other specified complication; E46 Unspecified protein-calorie malnutrition; E87.1 Hypo-osmolality and hyponatremia; L03.311 Cellulitis of abdominal wall; M86.9 Osteomyelitis, unspecified; R65.10 Systemic inflammatory response syndrome (SIRS) of non-infectious origin without acute organ dysfunction; C44.329 Squamous cell carcinoma of skin of other parts of face; R13.10 Dysphagia, unspecified; D63.8 Anemia in other chronic diseases classified elsewhere; F17.210 Nicotine dependence, cigarettes, uncomplicated; I10 Essential (primary) hypertension; Z85.828 Personal history of other malignant neoplasm of skin; L03.211 Cellulitis of face; Z92.3 Personal history of irradiation; Z82.0 Family history of epilepsy and other diseases of the nervous system; Z80.3 Family history of malignant neoplasm of breast; Z79.51 Long term (current) use of inhaled steroids; Z79.899 Other long term (current) drug therapy; K94.23 Gastrostomy malfunction; J44.9 Chronic obstructive pulmonary disease, unspecified; F17.200 Nicotine dependence, unspecified, uncomplicated; Z98.890 Other specified postprocedural states
CPT/HCPCS: 36415; 74018; 80048-TC; 80061-TC; 80076-TC; 80202-TC; 82962-TC; 83605-TC; 83690-TC; 83735-TC; 84100-TC; 85025-TC; 87040-TC; 87070-TC; 87081-TC; 87186-TC; 97116-TC; 97530-TC; A6248; A6253; A6403; G0378; J1815; J2270; J2543; J3370; J7030; J7040; J7060; Q9963